=== PATIENT | male | born 1945 | race Native Hawaiian/Other Pacific Islander ===

== ENCOUNTER 2017-09-11 13:27 | Outpatient (CLI) | payer OTHER | END 2017-09-11 13:53 | disposition short-term general hospital (02) | LOC: AMB 13:27 | DX: R10.84 Generalized abdominal pain (principal); R07.89 Other chest pain; M54.5 Low back pain | CPT/HCPCS: A0425; A0427 ==

== ENCOUNTER 2017-09-11 14:11 | Emergency (ER) | payer OTHER ==
[~2017-09-11] VITALS: Ht 170.2 cm; Wt 104.3 kg
[2017-09-11 15:03] LABS: PLATELET COUNT 206 K/uL (142-355)
== END 2017-09-11 19:36 | disposition short-term general hospital (02) ==
LOC: ED 14:11
DX: K56.699 Other intestinal obstruction unspecified as to partial versus complete obstruction (principal)
CPT/HCPCS: 80053; 81000; 82150; 83690; 85027; 99284; J7120; Q9963

== ENCOUNTER 2017-09-11 19:39 | Outpatient (CLI) | payer OTHER | END 2017-09-11 20:10 | disposition short-term general hospital (02) | LOC: AMB 19:39 | DX: K56.699 Other intestinal obstruction unspecified as to partial versus complete obstruction (principal) | CPT/HCPCS: A0425; A0427 ==